=== PATIENT | male | born 1930 | race Caucasian/White ===

== ENCOUNTER → 2017-03-22 | Outpatient (CLI) | payer MEDICARE, OTHER ==
--- NOTE | ~2017-03-22 | ECH ---
Transthoracic Echocardiography Report (TTE) Demographics Patient Name SHARRON GRAY Date of Study 03/22/2017 Patient Number [id number] Visit Number [id number] Date of 1930 Room Number Accession Number [id number] Gender Male Age 86 year(s) Referring Julianna Dean MD Tree Tapping Laborer Rica Wong Physician RDCS Physician Interpreting Mariela Monroy MD Algology Teacher Physician Supervising Ordering Physician Julianna Dean MD, MD/P Nurse Stress It Security Architect Conclusions Summary Technically good exam. The estimated left ventricular ejection fraction is 55-60%. Mild concentric left ventricular hypertrophy. Moderate to severely dilated right ventricle with normal function. The left atrium is severely dilated by LA volume index measurement. Patient has history of ASD closure device. Device appears well seated. There is no evidence of residual leak by color doppler. Mild-moderate mitral regurgitation by color Doppler. There is mild-moderate aortic regurgitation by color Doppler. Moderate tricuspid regurgitation by color Doppler. Normal pulmonary pressures. Procedure Type of Study TTE procedure:Echo Complete SF. Procedure Date Date: 03/22/2017 Start: 12:45 Technical Quality: Good visualization Indications:Edema, Atrial fibrillation and History of CABG. Additional Indications:History of ASD closure device Appropriate Use Criteria: 9 Height: 73 inches Weight: 219 pounds BSA: 2.24 m Rhythm: Atrial fibrillation HR: 56 bpm BP: 136/63 mmHg M-Mode/2D Measurements LV Diastolic Dimension: 4.28 cm LV Systolic Dimension: 3.53 cm LV Septum Diastolic: 1.17 cm LV PW Diastolic: 1.11 cm AO Root Dimension: 3.06 cm Cardiac Output: 2.81 l/min LA Dimension: 5.84 cm Cardiac Index: 1.25 l/min*m RV Diastolic Dimension: 6.29 cm LA volume index: 66 ml/m LVOT: 2.11 cm LVOT VTI: 14.38 cm RV Base: 5.2 cm LV Stroke volume: 50.26 ml RV Mid: 3.3 cm LV Stroke volume index: 22.44 ml/m TAPSE: 2.6 cm TDI-S': 11 cm/s Doppler Measurements AV Peak Velocity: 1.3 m/s MV Peak E-Wave: 0.6 m/s AV Peak Gradient: 6.76 mmHg AV Mean Gradient: 3.75 mmHg MV P1/2t: 106.4 msec LVOT Peak Velocity: 0.77 m/s AV Area (Continuity):2.11 cm AV P1/2t: 718.6 msec MV Area (PHT): 2.07 cm TR Velocity:2.53 m/s PV Peak Velocity: 1.26 m/s TR Gradient:25.6 mmHg PV Peak Gradient: 6.34 mmHg Estimated RAP:8 mmHg Estimated PASP: 33.6 mmHg Estimated RVSP: 34 mmHg E' Septal Velocity: 0.11 m/s E' Lateral Velocity: 0.14 m/s RA Area: 34.84 cm Findings Left Ventricle The left ventricle is normal in size . Mild concentric left ventricular hypertrophy. Diastolic function indeterminate due to patient's arrhythmia. Right Ventricle Moderate to severely dilated right ventricle with normal function. Left Atrium The left atrium is severely dilated by LA volume index measurement. Patient has history of ASD closure device. Device appears well seated. There is no evidence of residual leak by color doppler. Right Atrium The right atrium is severely dilated. Mitral Valve Normal mitral valve structure and function. Mild-moderate mitral regurgitation by color Doppler. Aortic Valve The aortic valve is mildly sclerotic. There is mild-moderate aortic regurgitation by color Doppler. Tricuspid Valve Normal tricuspid valve structure and function. Moderate tricuspid regurgitation by color Doppler. Normal pulmonary pressures. Pulmonic Valve Normal pulmonic valve structure and function. Mild pulmonic valve regurgitation by color Doppler. Pericardial Effusion No evidence of pericardial effusion. Miscellaneous Visualized portions of the aortic root and ascending aorta appear normal in size. Pleural Effusion No evidence of pleural effusion. Contractility Score LV regional wall motion:(0-Non visualized 1-Normal 2-Hypokinesis 3-Akinesis 4-Dyskinesis 5-Aneurysm) Signature
== END | disposition home or self-care (01) ==
LOC: CARD 12:20
DX: R60.9 Edema, unspecified (principal); I50.1 Left ventricular failure, unspecified; I34.0 Nonrheumatic mitral (valve) insufficiency; I35.1 Nonrheumatic aortic (valve) insufficiency; I07.1 Rheumatic tricuspid insufficiency; I51.7 Cardiomegaly